=== PATIENT | male | born 1950 | race Caucasian/White ===

== ENCOUNTER → 2017-12-10 | Day surgery (SDC) | payer OTHER ==
--- NOTE | 2017-11-07 13:13 | Diagnostic Imaging Report ---
PROCEDURE: X-RAY CHEST, TWO VIEWS COMPARISON: None. INDICATIONS: PRE- OP KNEE SUEGERY. DENIES CHEST COMPLAINTS FINDINGS: LUNGS: Mildly hyperinflated. No mass or infiltrate. Pulmonary vasculature is normal. PLEURA: No effusions or pneumothorax. Mild interval eventration of right diaphragm. HEART \T\ MEDIASTINUM: The heart is within normal size-limits. Numerous ectatic. BONES \T\ SOFT TISSUES: There changes of the spine without compression deformity or focal osseous lesions. Soft tissues are unremarkable. CONCLUSION: Mild hyperinflation suggestive of small airways disease. No acute cardiopulmonary process. Dictated by: Ginger Juan M.D. on 11/07/2017 at 13:17 Electronically approved by: Ginger Juan M.D. on 11/07/2017 at 13:17
[2017-11-07 13:21] LABS: BASOPHILS # (AUTO) 0.1 (0.0-0.1); BASOPHILS % 0.9 % (0.0-1.0); EOSINOPHILS # (AUTO) 0.2 (0.0-0.4); EOSINOPHILS % 2.5 % (0.0-6.0); HEMATOCRIT 47.6 % (38.2-49.6); HEMOGLOBIN 16.8 g/dL (14.0-18.0); LYMPHOCYTES # (AUTO) 1.6 (1.0-3.2); LYMPHOCYTES % 25.5 % (18.0-39.1); MEAN CORPUSCULAR HEMOGLOBIN 30.3 pg (28-32); MEAN CORPUSCULAR HGB CONC 35.3 g/dL (31-35); MEAN CORPUSCULAR VOLUME 85.8 fL (81-99); MONOCYTES # (AUTO) 0.8 (0.2-0.8); MONOCYTES % 12.7 % (4.4-11.3); NEUTROPHILS # (AUTO) 3.7 (2.1-6.9); NEUTROPHILS % 58.1 % (38.7-80.0); PLATELET COUNT 226 x10e3/uL (140-360); RED BLOOD COUNT 5.55 x10e6/uL (4.3-5.7); RED CELL DISTRIBUTION WIDTH 12.9 % (11.7-14.4)
[~2017-12-10] MED LIST: AMLODIPINE BESYL5 MG PO; ASPIR-LOW81 MG PO; ATORVASTATIN CA20 MG PO; BENICAR HCT 401 EACH PO; BETAMETHASONE D15 G2 TD; BUPIVACAINE 0.5%/EPI 30 ML SDV INJ ONE; CARISOPRODOL250 MG PO; CEFAZOLIN SOD 2 GM/D5W 50ML 0 ML IV ONE; CICLOPIROX15 GM TOP; CLINDAMYCIN PHOS 900MG/ 50ML 50 ML IV ONE; DESFLURANE 240 ML BTL INH ONE; DEXAMETHASONE SOD PHOS INJ 4 MG/ML VIAL ONE; DICLOFENAC SODI75 MG PO; FENTANYL CITRATE/PF 100MCG/2 ML INJ ONE; GLYCOPYRROLATE INJ 1MG/ 5 ML SYR ONE; KETAMINE HCL INJ 50 MG/ML 10 ML VIAL ONE; KETOROLAC TROMETHAMINE 30 MG/ML VIAL ONE; LIDOCAINE HCL 2% LOCAL INJ 5 ML SDV VIAL INJ ONE; LOSARTAN-HCTZ1 EAC1 PO; MELOXICAM7.5 MG PO; MIDAZOLAM HCL 2 MG/2 ML VIAL ONE; ONDANSETRON HCL INJ 2 MG/ML VIAL ONE; PROPOFOL IV EMULSION 10 MG/ML 20 ML VIAL ONE; TESTOSTERO100 MG/1 M IM; VALACYCLOVIR1000 MG PO
--- NOTE | 2017-12-13 16:56 | Operative Report ---
DATE OF PROCEDURE: December 10, 2017 PREOPERATIVE DIAGNOSES 1. Left knee medial meniscus tear. 2. Left knee lateral meniscus tear. 3. Left knee degenerative joint disease of the knee. POSTOPERATIVE DIAGNOSES 1. Left knee medial meniscus tear. 2. Left knee lateral meniscus tear. 3. Left knee degenerative joint disease of the knee. OPERATION/PROCEDURE PERFORMED: 1. Left knee examination under anesthesia. 2. Left knee arthroscopy. 3. Left knee partial medial meniscectomy. 4. Left knee partial lateral meniscectomy. 5. Left knee chondroplasty of the patella, the trochlea, the medial femoral condyle, medial tibial plateau, the lateral femoral condyle and lateral tibial plateau. COPY PREPARER: None. ANESTHESIA: General endotracheal intubation anesthesia. IV FLUIDS: Per the anesthesia record. BRIEF DESCRIPTION OF THE PATIENT'S OPERATIVE PROCEDURE: Mr. Navarro was taken to the operating room and placed in the supine position on operating table. Following induction of general anesthesia as well as endotracheal intubation, the patient's left lower extremity was examined under anesthesia. He was found to have a mild effusion within the knee joint, but otherwise ligamentously stable knee. Patient's lower extremity was prepped and draped in standard surgical fashion. A 2 portal technique was used to provide this patient arthroscopic evaluation of the knee joint. Examination of the suprapatellar pouch, medial and lateral gutters found no evidence of loose bodies. There was, however, evidence of chondromalacia of the patellar and trochlear surfaces. The scope was advanced in the medial compartment and examination of the medial compartment demonstrated a torn medial meniscus. There was also chondromalacia of the articulating surfaces. A combination of biting forceps and motorized shaver were used to resect the torn portion of meniscus. Chondroplasties of the medial femoral condyle and medial tibial plateau were performed at this time. Scope was advanced into the intercondylar notch and the anterior cruciate ligament was identified and found to be intact. Scope was advanced in lateral compartment. Examination of the lateral compartment demonstrated a torn lateral meniscus. There was also chondromalacia of the articulating surfaces. A combination of biting forceps and motorized shaver were used to resect the torn portion of the lateral meniscus. Chondroplasties of the lateral femoral condyle and lateral tibial plateau were performed at this time. Scope was then placed in suprapatellar pouch and chondroplasties of the patellar and trochlear performed. The knee was then deflated of its sterile normal saline. Each of the portal sites were closed using 4-0 nylon suture. The portal sites as well as the knee itself were injected half percent Marcaine with epinephrine. Sterile dressings were applied. The patient was then awakened and taken to the post anesthesia care unit in stable condition. Job#: [id number] ALEC
--- OUTSIDE RECORDS SUMMARY | 2018-01-29 01:55 | XMS REPORT ---
Author Author [facility] Address Unknown Phone Unavailable Care Team Providers Care Educational Speech Language Clinician Name Role Phone RUDDY GODDARD Unavailable Unavailable Problems This patient has no known problems. Allergies, Adverse Reactions, Alerts This patient has no known allergies or adverse reactions. Medications This patient has no known medications. Results Test Description Test Time Test Comments Text Results Atomic Results Result Comments CHEST 2 VIEWS 2017-11-07 13:17:00 [place] [address] Patient Name: GOOD WEBB MR #: [id number] : 1950 Age/Sex: 66/M Req #: [id number] Adm Physician: Ordered by: CALLY MONTES MD Report #: [id number] Location: OR Room/Bed: Procedure: [id number] DX/CHEST 2 VIEWS Exam Date: Exam Time: REPORT STATUS: Signed PROCEDURE: X-RAY CHEST, TWO VIEWS COMPARISON: None. INDICATIONS: PRE- OP KNEE SUEGERY. DENIES CHEST COMPLAINTS FINDINGS: LUNGS: Mildly hyperinflated. No mass or infiltrate. Pulmonary vasculature is normal. PLEURA: No effusions or pneumothorax. Mild interval eventration of right diaphragm. HEART T MEDIASTINUM : The heart is within normal size-limits. Numerous ectatic. BONES T SOFT TISSUES: There changes of the spine without compression deformity or focal osseous lesions. Soft tissues are unremarkable. CONCLUSION: Mild hyperinflation suggestive of small airways disease. No acute cardiopulmonary process. Dictated by: Chris Juan M.D. on 2017 at 13:17 Electronically approved by: Chris Juan M.D. on 2017 at 13:17 Dictated By: CHRIS JUAN MD Transcribed By : YIFAN on 11/07/177 COPY TO: CALLY MONTES MD
== END | disposition home or self-care (01) ==
LOC: OR 05:53
PROVIDERS: ATTEND Specialist
DX: S83.222A Peripheral tear of medial meniscus, current injury, left knee, initial encounter (principal); S83.262A Peripheral tear of lateral meniscus, current injury, left knee, initial encounter; M17.12 Unilateral primary osteoarthritis, left knee; M22.42 Chondromalacia patellae, left knee; I10 Essential (primary) hypertension; G47.33 Obstructive sleep apnea (adult) (pediatric); I25.10 Atherosclerotic heart disease of native coronary artery without angina pectoris; K21.9 Gastro-esophageal reflux disease without esophagitis; R00.1 Bradycardia, unspecified; X58.XXXA Exposure to other specified factors, initial encounter; Z88.0 Allergy status to penicillin; Z01.810 Encounter for preprocedural cardiovascular examination; Z01.812 Encounter for preprocedural laboratory examination; Z01.818 Encounter for other preprocedural examination; Z79.82 Long term (current) use of aspirin; Z68.38 Body mass index [BMI] 38.0-38.9, adult; Z95.5 Presence of coronary angioplasty implant and graft
CPT/HCPCS: 29880; 36415; 71046; 85025; 93005; J1100; J1885; J2001; J2250; J2405; J3490